=== PATIENT | male | born 1990 | race Caucasian/White ===

== ENCOUNTER 2020-09-19 08:06 | Emergency (ER) | payer OTHER ==
--- NOTE | 2020-09-19 09:04 | ED Physician Documentation ---
PD HPI LOWER EXT INJURY - Stated complaint Stated Complaint: L ANKLE PX - Chief complaint Chief Complaint: Ext Problem - History obtained from History obtained from: Patient - Additional information Additional information: Patient comes emergency department chief complaint of left ankle pain and swelling after a twisting injury this morning. Patient states he was doing PT for the and came down hard on his left foot. He states that in the process, he "rolled" his foot at the ankle, causing his foot to turn medially. The patient felt a pop and was able to hobble off to the side. However, by the time he got home, he was not even able to climb his stairs, which prompted him to come here. No prior injury to the ankle. No other injuries today. No other complaints at this time. Review of Systems Ten Systems: 10 systems reviewed and negative Constitutional: reports: Reviewed and negative Eyes: reports: Reviewed and negative Ears: reports: Reviewed and negative Nose: reports: Reviewed and negative Throat: reports: Reviewed and negative Cardiac: reports: Reviewed and negative Respiratory: reports: Reviewed and negative GI: reports: Reviewed and negative : reports: Reviewed and negative Skin: reports: Reviewed and negative Musculoskeletal: reports: Extremity pain, Joint swelling, Pain with weight bearing Neurologic: reports: Reviewed and negative Psychiatric: reports: Reviewed and negative Endocrine: reports: Reviewed and negative Immunocompromised: reports: Reviewed and negative PD PAST MEDICAL HISTORY - Allergies Allergies/Adverse Reactions: Allergies Allergy/AdvReac Type Severity Reaction Status Date / Time No Known Drug Allergies Allergy Verified 09/19/20 08:46 PD ED PE NORMAL - Vitals Vital signs reviewed: Yes - General General: Alert and oriented X 3, No acute distress - HEENT HEENT: Atraumatic, PERRL, EOMI, Moist mucous membranes - Neck Neck: Supple, no meningeal sign - Cardiac Cardiac: Strong equal pulses - Respiratory Respiratory: No respiratory distress - Derm Derm: Warm and dry - Extremities Extremities: No deformity, Other (Mild tenderness palpation medial malleolus without step-off or deformity; moderate tenderness palpation soft tissue surrounding lateral malleolus left ankle. No step-off or deformity. No tenderness over foot. Mild left ankle edema laterally.) - Neuro Neuro: Alert and oriented X 3 - Psych Psych: Normal mood, Normal affect Results - Vitals Vitals: Vital Signs - 24 hr 09/19/20 09/19/20 08:10 10:22 Temperature 36.9 C 37.2 C Heart Rate 103 H 98 Respiratory 16 16 Rate Blood Pressure 134/85 H 126/80 O2 Saturation 98 99 Oxygen O2 Source Room air - Rads (name of study) L ankle Radiology: Final report received, EMP read indepedently, See rad report (neg) PD MEDICAL DECISION MAKING - ED course Complexity details: reviewed results, re-evaluated patient, considered differential, d/w patient ED course: Patient was worked up with x-ray of the left ankle, which was found to be unremarkable. He was placed in an air splint and given a pair of crutches. We have discussed symptomatic management at home, as well as the usual indications for return. Departure - Departure Disposition: Home, Self Care Clinical Impression: Ankle sprain Qualifiers: Encounter type: initial encounter Involved ligament of ankle: unspecified ligament Laterality: left Qualified Code(s): S93.402A - Sprain of unspecified ligament of left ankle, initial encounter Condition: Stable Instructions: ED Sprain Ankle Comments: Your x-ray did not show any broken bones; however, it appears you have sprained your ankle. You should use the Aircast and crutches as long as you need them to help with the discomfort in your ankle. Please prop the ankle up to help with swelling. You may take ibuprofen and Tylenol to help with the discomfort as well, and use ice packs to further augment this. You should not do any strenuous or high impact activities on your ankle for the next month. If it is feeling better after that, you may slowly return to normal activities. Discharge Date/Time: 09/19/20 10:27
--- NOTE | 2020-09-19 09:21 | XRAY Report ---
PROCEDURE: Ankle 3 View LT INDICATIONS: non wt bearing, pain. TECHNIQUE: 3 views of the ankle were acquired. COMPARISON: None FINDINGS: Bones: No fractures or dislocations. Ankle mortise is normally aligned. No suspicious bony lesions . Soft tissues: No tibiotalar joint effusion. Achilles tendon appears normal. Lateral soft tissue sw elling is noted and ligamentous injury cannot be excluded. IMPRESSION: No fracture. No osseous lesion. If there are persistent symptoms or continued clinical concern for pa thology, then repeat plain film radiographs (7-10 days) or advanced imaging (CT, MR, bone scan) shoul d be considered for further evaluation. Reviewed by: Lavinia Montgomery MD, PhD on 09/19/2020 9:19 AM PDT Approved by: Lavinia Montgomery MD, PhD on 09/19/2020 9:19 AM PDT Station ID: [id number]
[2020-09-19 10:24] VITALS: BP 126/80
== END 2020-09-19 10:27 | disposition home or self-care (01) ==
LOC: ED 08:06
DX: S93.402A Sprain of unspecified ligament of left ankle, initial encounter (principal); X50.1XXA Overexertion from prolonged static or awkward postures, initial encounter; Y93.A9 Activity, other involving cardiorespiratory exercise; Y99.1 Military activity
CPT/HCPCS: 99282; 99283